=== PATIENT | male | born 1960 | race Caucasian/White ===

== ENCOUNTER 2016-10-19 13:17 | Inpatient (IN) | payer MEDICARE ==
--- NOTE | ~2016-10-19 | WRIGHTHP ---
[place], [place] PATIENT HISTORY AND PHYSICAL EXAM NAME: RENU RUBI UNIT #: [id number] ROOM: 315 DOCTOR: LATRELL MOREJON MD BIRTHDATE: [birth year] DOS: 10/19/2016 CHIEF COMPLAINT: "I am just anxious and depressed." HISTORY OF PRESENT ILLNESS: This is a 56-year-old white male who was sent to the [facility] from [facility]. The patient was brought there because he was picked up by the [place] [employer]. He had been acting very bizarrely. He was yelling out that he was Jarad' father and that Jarad keeps telling him to beat up other people. The patient does have a significant history of alcohol use, drinking at least 2-4 [place] daily. He also admits to a lengthy history of depression and mood swings, although he is rather vague on this. He is grossly psychotic at the present time, believing that he has special thorpe. PAST MEDICAL HISTORY: Remarkable for an abdominal aortic aneurysm, arthritis, asthma, coronary artery disease, COPD, hyperlipidemia, hypertension, seizure disorder, and pacemaker placement. MENTAL STATUS: The patient is alert and oriented. Mood does seem to be rather anxious and he endorses such. He also endorses a delusional system that he is Jarad' father and that he has special thorpe. He states that this responsibility does tend to make him very nervous and anxious at times. He denies seeing things, but does endorse hearing things, but would not elaborate. Memory seems relatively intact. DIAGNOSIS: Bipolar type 1, mixed, with psychotic features. PLAN: I did discontinue his Zoloft and start him on Risperdal 1 mg b.i.d. I will go ahead and increase this to 2 mg b.i.d. I may consider utilizing a decanoate prep to improve compliance and improve blood levels. We will engage him in individual and ramsey milieu activity with the ultimate plan to return home when psychiatrically stable. LATRELL MOREJON MD CM:HISPHYS:PATIENT HISTORY AND PHYSICAL EXAMINATION [id number] LATRELL MOREJON MD 10/20/16 0849 interface
--- NOTE | ~2016-10-19 | DS ---
[place], [place] DISCHARGE SUMMARY NAME: RENU RUBI UNIT #: [id number] ROOM: 315 DOCTOR: MIGDALIA JEONG BIRTHDATE: [birth year] DOS: ADDENDUM The patient was receiving a nicotine patch while he was on the unit. I did discuss with him smoking cessation prior to discharge. He stated that he would not continue to use the nicotine patch and refused it. He stated that he was going to smoke when he went home. We did discuss other options for smoking cessation and he stated that he was not interested at this time. Migdalia Jeong NP CM:DISCHARG [id number] MIGDALIA JEONG 10/24/16 1402 interface
--- NOTE | ~2016-10-19 | DS ---
[place], [place] DISCHARGE SUMMARY NAME: RENU RUBI UNIT #: [id number] ROOM: 315 DOCTOR: MIGDALIA JEONG BIRTHDATE: [birth year] DOS: 10/24/2016 CHIEF COMPLAINT: "This morning, how are this morning." HISTORY OF PRESENT ILLNESS: He is a 56-year-old male who came to the Behavioral Health Unit from [facility] Room. He was in [place] where he was picked up by the police, states that he was having bizarre behavior. He believed that he was Jarad' father and that Jarad was telling him to beat people off. He had at that time stated that he had consumed two [employer] drinks, which is an energy drink that has alcohol and that he did consume 2 of those daily. He has a history of depression and mood swings. At the time that he was brought in, he was grossly psychotic and believed that he had special thorpe. He was admitted to the Behavioral Health Unit for medication stabilization and treatment of his bipolar disorder. PAST MEDICAL HISTORY: He did have an aortic aneurysm, arthritis, asthma, coronary artery disease, COPD, hyperlipidemia, hypertension, seizure disorder, and he does have an implanted pacemaker. SUMMARY OF HOSPITAL COURSE: His Risperdal was titrated up to 2 mg twice a day and that was effective in treating his psychosis. He was also started on trazodone 50 mg at bedtime for depression and sleeplessness. He believes that the alcohol that he consumed is what caused him to have the delusion. He had no delusional activity on the unit. He was polite, cooperative, alert, and oriented and basically was just wondering when he was going to get go home. MENTAL STATUS AT DISCHARGE: He is alert and oriented. Mood and affect are appropriate. He has no delusions, hallucinations, or paranoia. He has had no EPS or TD. DIAGNOSIS: Bipolar disorder mixed with psychotic features. DISPOSITION: He will be discharged home. His prescriptions were printed and signed and will be sent with him on discharge. [place], [place] DISCHARGE SUMMARY NAME: RENU RUBI UNIT #: [id number] ROOM: 315 DOCTOR: MIGDALIA JEONG BIRTHDATE: [birth year] Migdalia Jeong NP CM:DISCHARG 25 [phone] MIGDALIA JEONG 10/24/16 105 interface
[2016-10-19] MEDS ORDERED: ARTIFICIAL TEAR15 M1 OU (14:51)
[2016-10-19] MEDS ORDERED: ALBUTEROL SULF0.5 M1 INH (14:52)
[2016-10-19] MEDS ORDERED: ZOLOFT100 MG PO (14:52)
[2016-10-19] MEDS ORDERED: ADVAIR 250/501 EA INH (14:53)
[2016-10-19] MEDS ORDERED: PLAVIX75 M1 PO (14:53)
[2016-10-19] MEDS ORDERED: ASPIR LOW81 MG PO (14:53)
[2016-10-19] MEDS ORDERED: LIPITOR40 MG PO (14:54)
[2016-10-19] MEDS ORDERED: RANEXA500 M1 PO (14:54)
[2016-10-19] MEDS ORDERED: RISPERDAL1 M1 PO (14:54)
[2016-10-19 20:20] VITALS: BP 110/70
[2016-10-20 07:05] LABS: BASO # 0.1 10*3/uL (0.0-0.1); BASO % 0.8 % (0.0-1.0); EOS # 0.3 10*3/uL (0.0-0.4); EOS % 4.8 % (1.0-4.0); HEMATOCRIT 40.4 % (42.0-52.0); HEMOGLOBIN 13.5 g/dl (14.0-18.0); LYMPH # 1.4 10*3/uL (1.3-4.4); LYMPH % 22.1 % (27.0-41.0); MEAN CELL VOLUME 97.8 fl (80.0-94.0); MEAN CORPUSCULAR HGB 32.7 pg (27.0-31.0); MEAN CORPUSCULAR HGB CONC 33.4 g/dl (33.0-37.0); MEAN PLATELET VOLUME 9.9 fl (9.6-12.3); MONO # 0.6 10*3/uL (0.1-1.0); MONO % 9.6 % (3.0-9.0); NEUT % 62.2 % (47.0-73.0); PLATELET COUNT AUTOMATED 275 10*3/uL (130-400); RED BLOOD COUNT 4.13 10*6/uL (4.50-5.90); RED CELL DISTRI WIDTH 13.2 % (0-14.5); WHITE BLOOD COUNT 6.5 10*3/uL (4.8-10.8)
[2016-10-20 07:37] LABS: ALBUMIN 3.1 gm/dl (3.1-4.5); ALKALINE PHOSPHATASE 52 U/L (45-117); BILIRUBIN, TOTAL 0.6 mg/dl (0.2-1.0); BUN 10 mg/dl (7-24); CARBON DIOXIDE 25 mmol/L (21-32); CHLORIDE 107 mmol/L (98-107); CHOLESTEROL 146 mg/dL (<200); EST GLOM FILT AFRICAN AMERICAN > 60 ml/min; GLUCOSE 88 mg/dL (65-99); HDL CHOLESTEROL 63 mg/dl (40-60); LDL CHOLESTEROL 59 mg/dL (9-159); POTASSIUM 3.7 mmol/L (3.5-5.1); SGOT/AST 17 IU/L (3-35); SGPT/ALT 19 U/L (12-78); SODIUM 140 mmol/L (136-145); TOTAL PROTEIN 6.2 gm/dL (6.4-8.2); TRIGLYCERIDES 120 mg/dl (<150); VLDL CHOLESTEROL 24 mg/dL (6-40)
[2016-10-20 07:44] LABS: THYROID STIM HORMONE (HS) 0.416 uIU/ml (0.358-4.75)
[2016-10-20 07:56] VITALS: BP 137/87
[2016-10-20 08:53] LABS: FOLIC ACID 9.94 ng/mL (>5.38); VITAMIN D, 25-HYDROXY 34.1 ng/mL (30-100)
[2016-10-20 13:52] LABS: BILIRUBIN NEGATIVE (NEGATIVE); BLOOD NEGATIVE (NEGATIVE); CLARITY CLEAR (CLEAR); COLOR YELLOW (YELLOW); GLUCOSE NEGATIVE (NEGATIVE); KETONE NEGATIVE (NEGATIVE); LEUKO ESTERASE NEGATIVE (NEGATIVE); NITRITE NEGATIVE (NEGATIVE); PH 5.5 (5.0-9.0); PROTEIN NEGATIVE (NEGATIVE); SPECIFIC GRAVITY <= 1.005 (1.005-1.030); UROBILINOGEN 0.2 E.U./dl (0.2-1.0)
[2016-10-20 14:02] LABS: EPITHELIAL CELLS 0-2; RBC 0-2 rbc/hpf (0-2); URINE REFLEX COMMENT NO (NO)
[2016-10-20 20:22] VITALS: BP 125/69
[2016-10-21 08:13] VITALS: BP 118/73
[2016-10-21 20:12] VITALS: BP 118/66
[2016-10-22 08:03] VITALS: BP 128/82
[2016-10-22 20:00] VITALS: BP 132/80
[2016-10-23 08:56] VITALS: BP 121/57
[2016-10-23 20:00] VITALS: BP 116/66
[2016-10-24 07:53] VITALS: BP 114/83
[2016-10-24] MEDS ORDERED: TRAZODONE50 MG PO (08:22)
[2016-10-24] MEDS ORDERED: KROGER NIC21 MG/24 H T (08:22)
[2016-10-24] MEDS ORDERED: RISPERIDONE2 M2 PO (08:22)
== END 2016-10-24 13:45 | disposition home or self-care (01) | DRG 885 ==
LOC: 3N 13:17
PROVIDERS: Psychiatry & Neurology Psychiatry
DX: F31.60 Bipolar disorder, current episode mixed, unspecified (principal); G40.909 Epilepsy, unspecified, not intractable, without status epilepticus; I10 Essential (primary) hypertension; M19.90 Unspecified osteoarthritis, unspecified site; J44.9 Chronic obstructive pulmonary disease, unspecified; I25.10 Atherosclerotic heart disease of native coronary artery without angina pectoris; E78.5 Hyperlipidemia, unspecified; F17.210 Nicotine dependence, cigarettes, uncomplicated; F10.10 Alcohol abuse, uncomplicated; I71.9 Aortic aneurysm of unspecified site, without rupture; Z95.0 Presence of cardiac pacemaker; Z95.818 Presence of other cardiac implants and grafts; Z90.49 Acquired absence of other specified parts of digestive tract; Z71.6 Tobacco abuse counseling; Z82.49 Family history of ischemic heart disease and other diseases of the circulatory system; Z79.82 Long term (current) use of aspirin; Z79.899 Other long term (current) drug therapy